=== PATIENT | female | born 1945 | race Caucasian/White ===

== ENCOUNTER 2023-02-05 08:52 | Outpatient (OUT) | payer MEDICARE, SELFPAY ==
--- NOTE | 2023-02-05 09:23 | ECG_ITS ---
[facility] Test Date: 2023-02-05 Pat Name: Vivian Shelton Department: Room: - Gender: Female [employer] Deputy Director: : 1945 Requested By: DAYNE GUPTA Order Number: [id number] Reading MD: RONALDO DRISCOLL Measurements Intervals [place] Rate: 54 P: 19 MS: 181 QRS: -34 QRSD: 138 T: -10 QT: 450 QTc: 426 Interpretive Statements SINUS BRADYCARDIA MARKED LEFT AXIS DEVIATION [QRS AXIS < -30] RIGHT BUNDLE BRANCH BLOCK [120+ ms QRS DURATION, UPRIGHT V1, 40+ ms S IN I/aVL/V4/V5/V6] VOLTAGE CRITERIA FOR LVH [MEETS CRITERIA IN ONE OF: R(aVL), S(V1), R(V5), R(V5/V6)+S(V1)] No previous ECG available for comparison Electronically Signed On 02-07-2023 15:33:06 EDT by RONALDO DRISCOLL
[2023-02-05 10:06] LABS: Basophils Absolute Auto 0.1 10^3/uL (0.0-0.1); Basophils Percent Auto 1.7 % (0.2-2.0); Eosinophils Absolute Auto 0.4 10^3/uL (0.0-0.7); Eosinophils Percent Auto 6.1 % (0.9-7.0); Hematocrit 39.3 % (36.0-48.0); Immature Granulocytes Abs Auto 0.01 10^3/uL (0.00-0.03); Immature Granulocytes Pct Auto 0.1 % (0.0-0.5); Lymphocytes Absolute Auto 2.1 10^3/uL (1.2-3.8); Lymphocytes Percent Auto 29.6 % (20.5-60.0); Mean Corpuscular HGB Conc 33.1 g/dL (29.9-35.2); Mean Corpuscular Volume 87.5 fL (81.0-99.0); Mean Platelet Volume 9.5 fL (9.5-13.5); Monocytes Absolute Auto 0.4 10^3/uL (0.3-0.8); Monocytes Percent Auto 5.9 % (1.7-12.0); Neutrophils Absolute Auto 4.1 10^3/uL (1.4-6.5); Neutrophils Percent Auto 56.6 % (43.0-75.0); Nucleated Red Blood Cells 0; Platelet Count 338 10^3/uL (150-450); Red Blood Count 4.49 10^6/uL (4.20-5.40); Red Cell Distribution Width 13.2 % (11.0-15.0); White Blood Count 7.2 10^3/uL (4.0-11.0)
[2023-02-05 11:14] LABS: Anion Gap 11.5; BUN Creatinine Ratio 11.3; Carbon Dioxide 31.8 mmol/L (21.0-32.0); Chloride 100 mmol/L (98-107); Estimated GFR (African America >60 (>=60); Estimated GFR (Non-African Ame >60 (>=60); Glucose 113 mg/dL (74-106); Potassium 4.3 mmol/L (3.5-5.1); Sodium 139 mmol/L (136-145)
--- NOTE | 2023-02-05 13:52 | PM.PRESUREVA ---
History of Present Illness History of Present Illness Chief complaint: BM&T for bilateral otitis media with effusion Narrative: Patient presents for preadmission testing. The patient states she's had multiple episodes of otitis media in the past six months. She states she also has congestion and hearing loss. She denies fever, sore throat, epistaxis, or any other complaints. Review of Systems ROS Narrative REVIEW OF SYSTEMS: Negative except as stated in HPI, ten or more systems reviewed. Constitutional: No fever , chills, weakness ENT: No sore throat or epistaxis Cardiovascular: No edema, chest pain, palpitations, Or activity intolerance Respiratory: No shortness of breath, cough, or wheezing Musculoskeletal: No joint pain or swelling Gastrointestinal: No abdominal pain, constipation, diarrhea, or vomiting Genitourinary: No dysuria or hematuria Neurological: No numbness, tingling, weakness, or headache Psychiatric: No mood changes PFSH PFS Medical History (Updated 02/05/23 @ 09:35 by Vee Soriano NP) Surgical History (Updated 02/05/23 @ 09:35 by Vee Soriano NP) Family History (Updated 02/05/23 @ 09:21 by Vee Soriano NP) Father Family history of myocardial infarction Family history of heart disease Family history of hypertension Mother Family history of heart disease Family history of hypertension Other Family history of COPD (chronic obstructive pulmonary disease) Social History (Updated 02/05/23 @ 09:53 by Vee Soriano NP) Within the past year, how often did you have a drink containing alcohol: monthly or less Smoking status: Never smoker Previous occupational history: Retired Highest level of school completed/degree received: high school graduate Meds Home Medications and Allergies Home Medications Medication Instructions Recorded Confirmed Type amlodipine 5 mg tablet 5 mg PO QDAY 02/05/23 02/05/23 History aspirin 81 mg tablet,delayed 81 mg PO QDAY 02/05/23 02/05/23 History release (Adult Aspirin Regimen) hydrochlorothiazide 25 mg tablet 25 mg PO QDAY 02/05/23 02/05/23 History pravastatin 20 mg tablet 20 mg PO QDAY 02/05/23 02/05/23 History Allergies Allergy/AdvReac Type Severity Reaction Status Date / Time sulfamethoxazole Allergy lip Verified 02/05/23 09:13 [From Bactrim] swelling trimethoprim [From Bactrim] Allergy lip Verified 02/05/23 09:13 swelling Exam Narrative: Exam Narrative: Constitutional: Awake, alert, comfortable, well-appearing, nontoxic, interactive, vital signs as charted Head: Normocephalic, atraumatic Eyes: Conjunctiva and lids normal to inspection, pupils normal ENT: Tympanic membranes with effusion bilaterally, naris patent, posterior oropharynx clear, oral mucosa moist Neck: Supple, normal appearance, normal range of motion, no meningeal signs, no lymphadenopathy Respiratory: No respiratory distress, breath sounds clear Cardiovascular: Regular rate and rhythm, strong and regular heart tones Musculoskeletal: Normal gait, no swelling or edema Skin: No rashes or induration, no lesions, only visible skin inspected Neuro: No neurological deficits, normal sensation Psychiatric: Oriented ?3, normal affect Assessment and Plan Assessment and Plan (1) Acute otitis media: (2) Dysfunction of both eustachian tubes: Plan Bilateral myringotomy with tubes, nasal endoscopy scheduled with Dr. Larios 02/17/2023.
== END 2023-02-05 08:53 ==
PROVIDERS: PCP Family Medicine; Referring Provider Otolaryngology; Visit Provider Otolaryngology
DX: Z01.812 Encounter for preprocedural laboratory examination (principal); Z01.810 Encounter for preprocedural cardiovascular examination; H65.93 Unspecified nonsuppurative otitis media, bilateral; H66.90 Otitis media, unspecified, unspecified ear; H69.83 Other specified disorders of Eustachian tube, bilateral
CPT/HCPCS: 36415; 80048; 85025; 93005; G0463

== ENCOUNTER 2023-03-23 10:06 | Outpatient (OUT) | payer MEDICARE, SELFPAY ==
--- NOTE | 2023-03-23 10:11 | ECG_ITS ---
[facility] Test Date: 2023-03-23 Pat Name: CHRIS BARKSDALE Department: Room: - Gender: Female [employer] Supervisor: : 1945 Requested By: DAYNE GUPTA Order Number: [id number] Reading MD: RONALDO DRISCOLL Measurements Intervals [place] Rate: 57 P: 39 VA: 180 QRS: -30 QRSD: 144 T: -6 QT: 440 QTc: 431 Interpretive Statements SINUS BRADYCARDIA RIGHT BUNDLE BRANCH BLOCK [120+ ms QRS DURATION, UPRIGHT V1, 40+ ms S IN I/aVL/V4/V5/V6] VOLTAGE CRITERIA FOR LVH [MEETS CRITERIA IN ONE OF: R(aVL), S(V1), R(V5), R(V5/V6)+S(V1)] WARNING: DATA QUALITY MAY AFFECT INTERPRETATION Electronically Signed On 03-24-2023 7:01:12 EDT by RONALDO DRISCOLL
--- NOTE | 2023-03-23 11:00 | P.GSHP_ITS ---
History of Present Illness History of Present Illness Chief complaint: bilateral eustachian tube dysfunction, Narrative: Patient presents for preadmission testing. The patient reports she has been suffering with multiple episodes of otitis media over the past 7-8 months. She also has congestion and hearing loss. She was originally scheduled for this procedure on February 17, but she had an abnormal EEKG and was subsequently referred to cardiology, she has now been cleared. She denies fever, sore throat, epistaxi s, or any other complaints. Review of Systems ROS Narrative REVIEW OF SYSTEMS: Negative except as stated in HPI, ten or more systems reviewed. Constitutional: No fever , chills, weakness ENT: No sore throat or epistaxis Cardiovascular: No edema, chest pain, palpitations, or activity intolerance Respiratory: No shortness of breath, cough, or wheezing Musculoskeletal: No joint pain or swelling Gastrointestinal: No abdominal pain, constipation, diarrhea, or vomiting Genitourinary: No dysuria or hematuria Neurological: No numbness, tingling, weakness, or headache Psychiatric: No mood changes PFSH PFSH Medical History (Updated 03/23/23 @ 10:26 by Vee Soriano NP) Surgical History (Updated 02/05/23 @ 09:35 by Vee Soriano NP) Family History (Updated 02/05/23 @ 09:21 by Vee Soriano NP) Father Family history of myocardial infarction Family history of heart disease Family history of hypertension Mother Family history of heart disease Family history of hypertension Other Family history of COPD (chronic obstructive pulmonary disease) Social History (Updated 02/05/23 @ 09:53 by Vee Soriano NP) Within the past year, how often did you have a drink containing alcohol: monthly or less Smoking status: Never smoker Previous occupational history: Retired Highest level of school completed/degree received: high school graduate Meds Home Medications and Allergies Home Medications Medication Instructions Recorded Confirmed Type amlodipine 5 mg tablet 5 mg PO QDAY 02/05/23 03/23/23 History aspirin 81 mg tablet,delayed 81 mg PO QDAY 02/05/23 03/23/23 History release (Adult Aspirin Regimen) hydrochlorothiazide 25 mg tablet 25 mg PO QDAY 02/05/23 03/23/23 History pravastatin 20 mg tablet 20 mg PO QDAY 02/05/23 03/23/23 History Allergies Allergy/AdvReac Type Severity Reaction Status Date / Time sulfamethoxazole Allergy lip Verified 03/23/23 10:22 [From Bactrim] swelling trimethoprim [From Bactrim] Allergy lip Verified 03/23/23 10:22 swelling Exam Narrative Exam Narrative: Constitutional: Awake, alert, comfortable, well-appearing, nontoxic, interactive, vital signs as charted Head: Normocephalic, atraumatic Eyes: Conjunctiva and lids normal to inspection, pupils normal ENT: Tympanic membranes with effusion bilaterally, nonerythematous, noninjected, naris patent, posterior oropharynx clear, oral mucosa moist Neck: Supple, normal appearance, normal range of motion, no meningeal signs, no lymphadenopathy Respiratory: No respiratory distress, breath sounds clear Cardiovascular: Regular rate and rhythm, strong and regular heart tones Musculoskeletal: Normal gait, no swelling or edema Skin: No rashes or induration, no lesions, only visible skin inspected Neuro: No neurological deficits, normal sensation Psychiatric: Oriented ?3, normal affect Assessment and Plan Assessment and Plan (1) Acute otitis media: (2) Dysfunction of both eustachian tubes: Plan Bilateral myringotomy with T-tubes, nasal endoscopy scheduled with Dr. Larios 03/31/2023.
[2023-03-23 11:21] LABS: Basophils Absolute Auto 0.1 10^3/uL (0.0-0.1); Basophils Percent Auto 1.6 % (0.2-2.0); Eosinophils Absolute Auto 0.5 10^3/uL (0.0-0.7); Eosinophils Percent Auto 6.9 % (0.9-7.0); Hematocrit 38.3 % (36.0-48.0); Immature Granulocytes Abs Auto 0.02 10^3/uL (0.00-0.03); Immature Granulocytes Pct Auto 0.3 % (0.0-0.5); Lymphocytes Absolute Auto 2.5 10^3/uL (1.2-3.8); Lymphocytes Percent Auto 36.4 % (20.5-60.0); Mean Corpuscular HGB Conc 33.9 g/dL (29.9-35.2); Mean Corpuscular Hemoglobin 29.6 pg (26.7-34.0); Mean Corpuscular Volume 87.2 fL (81.0-99.0); Monocytes Absolute Auto 0.5 10^3/uL (0.3-0.8); Neutrophils Absolute Auto 3.3 10^3/uL (1.4-6.5); Neutrophils Percent Auto 47.8 % (43.0-75.0); Platelet Count 305 10^3/uL (150-450); Red Blood Count 4.39 10^6/uL (4.20-5.40); Red Cell Distribution Width 13.1 % (11.0-15.0); White Blood Count 6.8 10^3/uL (4.0-11.0)
[2023-03-23 11:34] LABS: Anion Gap 10.6; BUN Creatinine Ratio 10.2; Carbon Dioxide 31.9 mmol/L (21.0-32.0); Chloride 100 mmol/L (98-107); Estimated GFR (African America >60 (>=60); Estimated GFR (Non-African Ame >60 (>=60); Glucose 110 mg/dL (74-106); Potassium 3.5 mmol/L (3.5-5.1); Sodium 139 mmol/L (136-145)
== END 2023-03-23 10:07 | disposition home or self-care (01) ==
PROVIDERS: PCP Family Medicine; Visit Provider Otolaryngology
DX: Z01.812 Encounter for preprocedural laboratory examination (principal); Z01.810 Encounter for preprocedural cardiovascular examination; Z01.818 Encounter for other preprocedural examination; H65.93 Unspecified nonsuppurative otitis media, bilateral; I10 Essential (primary) hypertension
CPT/HCPCS: 36415; 80048; 85025; 93005; G0463

== ENCOUNTER 2023-03-31 08:07 | Day surgery (SDC) | payer MEDICARE, SELFPAY ==
[2023-02-05 09:19] VITALS: BP 156/85; PULSE 59; RESP 16; TEMP 36.4; O2SAT 97; BMI 28.7
--- NOTE | 2023-02-05 09:56 | PM.PRESUREVA ---
History of Present Illness History of Present Illness Chief complaint: BM&T for bilateral otits with effusion Narrative: Patient presents for preadmission testing. The patient states she's had multiple episodes of otitis media in the past six months. She states she also has congestion and hearing loss. She denies fever, sore throat, epistaxis, or any other complaints. Review of Systems ROS Narrative REVIEW OF SYSTEMS: Negative except as stated in HPI, ten or more systems reviewed. Constitutional: No fever , chills, weakness ENT: No sore throat or epistaxis Cardiovascular: No edema, chest pain, palpitations, Or activity intolerance Respiratory: No shortness of breath, cough, or wheezing Musculoskeletal: No joint pain or swelling Gastrointestinal: No abdominal pain, constipation, diarrhea, or vomiting Genitourinary: No dysuria or hematuria Neurological: No numbness, tingling, weakness, or headache Psychiatric: No mood changes PFSH PFS Medical History (Updated 02/05/23 @ 09:35 by Vee Soriano NP) Surgical History (Updated 02/05/23 @ 09:35 by Vee Soriano NP) Family History (Updated 02/05/23 @ 09:21 by Vee Soriano NP) Father Family history of myocardial infarction Family history of heart disease Family history of hypertension Mother Family history of heart disease Family history of hypertension Other Family history of COPD (chronic obstructive pulmonary disease) Social History (Updated 02/05/23 @ 09:53 by Vee Soriano NP) Within the past year, how often did you have a drink containing alcohol: monthly or less Smoking status: Never smoker Previous occupational history: Retired Highest level of school completed/degree received: high school graduate Meds Home Medications and Allergies Home Medications Medication Instructions Recorded Confirmed Type amlodipine 5 mg tablet 5 mg PO QDAY 02/05/23 02/05/23 History aspirin 81 mg tablet,delayed 81 mg PO QDAY 02/05/23 02/05/23 History release (Adult Aspirin Regimen) hydrochlorothiazide 25 mg tablet 25 mg PO QDAY 02/05/23 02/05/23 History pravastatin 20 mg tablet 20 mg PO QDAY 02/05/23 02/05/23 History Allergies Allergy/AdvReac Type Severity Reaction Status Date / Time sulfamethoxazole Allergy lip Verified 02/05/23 09:13 [From Bactrim] swelling trimethoprim [From Bactrim] Allergy lip Verified 02/05/23 09:13 swelling Exam Narrative: Exam Narrative: Constitutional: Awake, alert, comfortable, well-appearing, nontoxic, interactive, vital signs as charted Head: Normocephalic, atraumatic Eyes: Conjunctiva and lids normal to inspection, pupils normal ENT: Tympanic membranes with effusion bilaterally, naris patent, posterior oropharynx clear, oral mucosa moist Neck: Supple, normal appearance, normal range of motion, no meningeal signs, no lymphadenopathy Respiratory: No respiratory distress, breath sounds clear Cardiovascular: Regular rate and rhythm, strong and regular heart tones Musculoskeletal: Normal gait, no swelling or edema Skin: No rashes or induration, no lesions, only visible skin inspected Neuro: No neurological deficits, normal sensation Psychiatric: Oriented ?3, normal affect Constitutional: Vital Signs, click to edit/add: Vital Signs - 24 hr 02/05/23 09:19 Temperature 97.5 F L Pulse Rate 59 L Respiratory Rate 16 Blood Pressure [Le ft Arm] 156/85 H Pulse Oximetry 97 Oxygen Delivery Me thod Room Air Assessment and Plan Assessment and Plan Plan Diagnosis: Bilateral otitis media with effusion Plan: Bilateral myringotomy with T tubes, nasal endoscopy scheduled with Dr. Lraios 02/17/2023.
[2023-03-23 10:23] VITALS: BP 150/82; PULSE 66; RESP 14; TEMP 36.4; O2SAT 94; BMI 28.8
[2023-03-31] VITALS (8 sets, daily range): BP systolic 127–165; BP diastolic 61–74; PULSE 55–68; RESP 14–16; TEMP 35.9–36.2; O2SAT 91–95
--- NOTE | 2023-03-31 | OP_ITS ---
OPERATION DATE: ??03/31/2023 PRIMARY CARE PHYSICIAN:? Sammie French M.D. SURGEON:? Cheryl Larios M.D. PREOPERATIVE DIAGNOSIS:? Bilateral otitis media with effusion and bilateral eustachian tube dysfunction. POSTOPERATIVE DIAGNOSIS:? Bilateral otitis media with effusion and bilateral eustachian tube dysfunction. PROCEDURE:? Bilateral myringotomy and tubes with microdissection, placement of T-tubes.and a nasal endoscopy. ANESTHESIA:? General LMA. COMPLICATIONS:? None. FINDINGS:? Bilateral serous effusion and no nasopharyngeal pathology evident. INDICATIONS:? This 78-year-old woman presented with bilateral otitis media with effusion, unresponsive to aggressive medical management.? She was brought to the OR for placement of tympanostomy tubes, as well as nasal endoscopy, to ensure there was no nasopharyngeal carcinoma which had caused her new onset of eustachian tube dysfunction. PROCEDURE:? Patient identified in the holding area and taken back to the OR where she was placed in the supine position.? After induction of general anesthesia by LMA, Afrin soaked pledgets were placed in each side of the nose.? The left ear was approached with the otomicroscope.? Cerumen was cleaned from the canal using a cerumen curette and an anterior radial myringotomy was performed.? Serous effusion was suctioned from the ear and a modified Agustin?s T-tube was folded and inserted in the ear and opened in the middle ear using microdissection.? Attention was then turned to the right ear and the same procedure performed.? The Afrin soaked pledgets were then removed from the nose and a zero degree nasal endoscope was used to examine the nose and nasopharynx bilaterally.? There was no significant pathology evident.? 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 The patient was then awakened and taken to the recovery room in good condition. TORSTEN
--- NOTE | 2023-03-31 08:34 | PC.NURSE ---
Scabbed over dime sized area to left liriano; no drainage
[2023-03-31] MEDS: LACTATED RINGER'S SOLUTION 1,000 ML 50 ML IV (08:35)
== END 2023-03-31 11:35 | disposition home or self-care (01) ==
PROVIDERS: PCP Family Medicine; Visit Provider Otolaryngology
PROC: (CPT 31231; principal; 2023-03-31 09:20)
PROC: (CPT 31231; 2023-03-31 09:20)
DX: H65.93 Unspecified nonsuppurative otitis media, bilateral (principal); H69.83 Other specified disorders of Eustachian tube, bilateral; I10 Essential (primary) hypertension; Z79.82 Long term (current) use of aspirin; E78.5 Hyperlipidemia, unspecified
CPT/HCPCS: 31231; 69436; J2704